=== PATIENT | female | born 1970 | race Caucasian/White ===

== ENCOUNTER 2018-05-03 17:43 | Emergency (ER) | payer MEDICAID ==
[~2018-05-03] VITALS: Ht 154.9 cm; Wt 86.4 kg
[~2018-05-03 17:43] MED LIST: ATEN25TA PO; CALC1TAB15 PO; FERR324T4 PO; METH2.5T6 PO; NAPR250T PO
[2018-05-03] MEDS ORDERED: IBUP-2354 PO (18:33)
[2018-05-03 20:37] VITALS: BP 137/84
[2018-05-03] MEDS ORDERED: HYDROCODONE/ACETAMINOPHEN 10-325 MG TABLET PO ONE (21:00)
== END 2018-05-03 21:14 | disposition home or self-care (01) ==
LOC: EMS 17:44
DX: K08.89 Other specified disorders of teeth and supporting structures (principal); M19.90 Unspecified osteoarthritis, unspecified site